=== PATIENT | male | born 1985 | race Caucasian/White ===

== ENCOUNTER 2017-06-26 18:28 | Emergency (ER) | payer MEDICAID ==
[~2017-06-26] VITALS: Ht 195.6 cm; Wt 88.0 kg
[2017-06-26 21:19] VITALS: BP 114/78
== END 2017-06-26 21:21 | disposition home or self-care (01) ==
LOC: ED 19:31
DX: S62.325A Displaced fracture of shaft of fourth metacarpal bone, left hand, initial encounter for closed fracture (principal); S62.665A Nondisplaced fracture of distal phalanx of left ring finger, initial encounter for closed fracture; X58.XXXA Exposure to other specified factors, initial encounter; Y93.89 Activity, other specified; Y99.8 Other external cause status; Y92.89 Other specified places as the place of occurrence of the external cause
CPT/HCPCS: 29125; 70450; 72125; 99284